=== PATIENT | male | born 1990 | race Caucasian/White ===

== ENCOUNTER 2016-09-11 23:40 | Emergency (ER) | payer BC ==
--- NOTE | 2016-09-12 05:34 | ER ---
ADMIT: 09/11/2016 RM/LOC: ER [facility] MR#: [id number] [id number] [place], [place] [id number] GAMALIEL RAVI [address] [place] [id number] Emergency Room Report SEX: M AGE: 26 : 1990 DATE: 09/11/2016 The patient is a 26-year-old male, complaining of bilateral flank pain, vomiting, started after playing soccer all day. States he has been drinking plenty of fluids. Exam remarkable for nontoxic, afebrile male. Nontender to palpation abdomen or CVA region. Creatinine 0.9. CRP less than 0.29. Lipase 97. Lactic 1.4. UA shows 1 wbc, 1 rbc, 1+ protein and ketone. CK 753. Normal CBC. The patient received 2 L normal saline, Zofran, Toradol with improvement of pain. Advised to push fluids. Follow up Dr. Castro as needed. Malik Estrada MD/ cindyl JOB #: [id number] CC: Malik Estrada MD, Attending Physician Shreya Castro MD, Family Physician Shreya Castro MD
== END 2016-09-12 03:26 | disposition home or self-care (01) ==
LOC: ER 23:40
DX: T67.5XXA Heat exhaustion, unspecified, initial encounter (principal); R10.9 Unspecified abdominal pain; R11.10 Vomiting, unspecified; Y93.66 Activity, soccer